=== PATIENT | female | born 2005 | race Caucasian/White ===

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

== ENCOUNTER 2023-10-16 13:22 | Emergency (ER) | payer MEDICAID ==
[2023-10-16] MEDS ORDERED: Acetaminophen 500 MG TAB ONE (13:36)
== END 2023-10-16 14:58 | disposition home or self-care (01) ==
LOC: NAV ERS 13:22
DX: H66.92 Otitis media, unspecified, left ear (principal); J02.8 Acute pharyngitis due to other specified organisms; F17.290 Nicotine dependence, other tobacco product, uncomplicated
CPT/HCPCS: 99283